=== PATIENT | male | born 1985 | race Caucasian/White ===

== ENCOUNTER 2016-06-12 13:24 | Emergency (ER) | payer MEDICAID ==
[~2016-06-12] VITALS: Ht 185.4 cm; Wt 101.0 kg
[2016-06-12 13:25] VITALS: BP 156/95
[2016-06-12] MEDS ORDERED: DIAZEPAM 5 MG TABLET PO ONE (14:00)
[2016-06-12] MEDS ORDERED: HYDROcodone/APAP 5/325 TABLET PO ONE (14:00)
[2016-06-12] MEDS ORDERED: KETOROLAC 30 MG/1 ML IM ONE (14:00)
[2016-06-12] MEDS ORDERED: HYDROcodone/APAP 5/325 TABLET ONE (14:39)
[2016-06-12] MEDS ORDERED: DIAZEPAM 5 MG TABLET ONE (14:39)
[2016-06-12] MEDS ORDERED: KETOROLAC 30 MG/1 ML ONE (14:39)
== END 2016-06-12 14:56 | disposition home or self-care (01) ==
LOC: ED 14:50
DX: S39.012A Strain of muscle, fascia and tendon of lower back, initial encounter (principal); F17.210 Nicotine dependence, cigarettes, uncomplicated; X50.9XXA Other and unspecified overexertion or strenuous movements or postures, initial encounter; Y93.89 Activity, other specified; Y92.89 Other specified places as the place of occurrence of the external cause; Y99.8 Other external cause status
CPT/HCPCS: 72110; 96372; 99284; J1885

== ENCOUNTER 2017-10-10 14:33 | Emergency (ER) | payer MEDICAID, OTHER ==
[~2017-10-10] VITALS: Ht 185.4 cm; Wt 94.0 kg
[2017-10-10] MEDS ORDERED: PROPOFOL 10 MG/ML, 20ML ONE ×2 (15:43→15:52)
[2017-10-10 16:08] VITALS: BP 143/87
== END 2017-10-10 17:11 | disposition home or self-care (01) ==
LOC: ED 16:45
DX: S03.03XA Dislocation of jaw, bilateral, initial encounter (principal); X58.XXXA Exposure to other specified factors, initial encounter; Y93.89 Activity, other specified; Y99.8 Other external cause status; Y92.89 Other specified places as the place of occurrence of the external cause
CPT/HCPCS: 21480; 70100; 99152; 99284; 99285